=== PATIENT | female | born 1990 | race Two or more races ===

== ENCOUNTER 2024-09-22 03:07 | Emergency (ER) | payer MEDICAID, SELFPAY ==
[2024-09-22 03:11] VITALS: BP 143/88; PULSE 112; RESP 22; TEMP 36.4; O2SAT 96
[2024-09-22 03:13] VITALS: BMI 30.7
[2024-09-22] MEDS: DEXAMETHASONE SOD PHOS INJ 10 MG/ML VIAL PO (03:24)
[2024-09-22] MEDS: ALBUTEROL/IPRATROPIUM (Duoneb) RT SOL 3 ML NEBU 6 ML INH (03:32)
[2024-09-22 03:33] VITALS: PULSE 112; RESP 20; O2SAT 99
[2024-09-22] MEDS: BUDESONIDE RT 0.5 MG/2 ML NEBU INH (03:33)
--- NOTE | 2024-09-22 04:08 | PD.ASTHM ---
ED Asthma RME/HPI General Chief Complaint: Shortness of Breath/Dyspnea Stated Complaint: DIFF BREATHING Time Seen by Provider: 09/22/24 03:17 Arrival date/time: 09/22/24 03:07 34F with no known PMH including asthma (though patient uses an inhaler) presents to ED with 1 day of wheezing. Limitations: no limitations Related Data Previous Rx's ?Medication ?Instructions ?Recorded Hydrocodone/Acetaminophen * (NORCO 1 tab PO Q4H PRN pain #20 tabs 05/23/15 5/325 *) prednisone 20 mg tablet 20 mg PO QDAY 4 days #4 tabs 09/22/24 Allergies Allergy/AdvReac Type Severity Reaction Status Date / Time No Known Allergies Allergy Verified 09/22/24 03:12 Review of Systems Review of Systems Systems Reviewed: All systems reviewed, normal except as documented Constitutional Constitutional: Reports system reviewed and no additional complaints, except as documented, Denies fever(s) and Denies headache(s) ENT Ears, Nose, Mouth, and Throat: Denies disequilibrium and Denies headache(s) Cardiovascular Cardiovascular: Reports system reviewed and no additional complaints, except as documented, Denies chest pain and Denies dyspnea Respiratory Respiratory: Reports system reviewed and no additional complaints, except as documented, Reports as per HPI, Denies cough, Denies dyspnea and Reports wheezing Gastrointestinal Gastrointestinal: Reports system reviewed and no additional complaints, except as documented, Denies abdominal pain, Denies nausea and Denies vomiting Neurologic Neurologic: Reports system reviewed and no additional complaints, except as documented, Denies confusion, Denies disequilibrium and Denies headache(s) Psychiatric Psychiatric: Denies confusion Allergic/Immunologic Allergic/Immunologic: Reports wheezing Past Medical History Social History SMOKING STATUS: Never smoker ED Exam General Limitations: Present no limitations General appearance: Present alert and in no apparent distress Head Head exam: Present atraumatic Eye Eye exam: Present normal appearance, PERRL and EOMI ENT ENT exam: Present normal exam, normal oropharynx and mucous membranes moist Neck Neck exam: Present normal inspection, full ROM and trachea midline Chest Chest inspection: Present normal inspection and symmetric chest wall rise Respiratory Respiratory exam: Present wheezes Cardiovascular Cardiovascular exam: Present regular rate, normal rhythm and normal heart sounds Abdominal Exam Abdominal exam: Present soft and normal bowel sounds Extremities Exam Extremities exam: Present normal inspection and full ROM Back Exam Back exam: Present normal inspection and full ROM Neurological Exam Neurological exam: Present alert, oriented X3 and CN II-XII intact Psychiatric Psychiatric exam: Present normal affect and normal mood Skin Skin exam: Present warm, dry, intact and normal color Course Quality Measures none Orders Category Date Time Status Albuterol/Ipratr Rt Kathy [Duoneb Rt Kathy] Med 09/22/24 03:17 Discontinued 6 ml INH X1 ONE Budesonide Rt [Pulmicort Rt Kathy] Med 09/22/24 03:17 Discontinued 0.5 mg INH X1 ONE Dexamethasone Inj [Decadron Inj] Med 09/22/24 03:17 Discontinued 10 mg PO X1 ONE Vital Signs Vital signs: Vital Signs Temperature 97.6 F 09/22/24 03:11 Pulse Rate 112 H 09/22/24 03:11 Respiratory Rate 22 H 09/22/24 03:11 Blood Pressure 143/88 H 09/22/24 03:11 Pulse Oximetry (%) 96 09/22/24 03:11 Oxygen Delivery Method Room Air 09/22/24 03:11 Asthma MDM Narrative MDM Narrative:: 34F with no known PMH including asthma (though patient uses an inhaler) presents to ED with 1 day of wheezing. Physical exam reveals wheezing in lungs. Patient is afebrile, calm, and alert. Meds relieved symptoms. Given benefits counselor to get official diagnosis of asthma. Patient data External records reviewed:: [facility] previous records Clinical information provided by:: patient Social determinants that could affect healthcare access:: none Patient has the following chronic illnesses:: none How is presenting disease/condition affected by chronic disease/condition?: no chronic disease Evaluation data The following diagnostics were reviewed and interpreted by me:: other (specify) (none) Lab and/or radiology exams considered but not ordered:: not ordered Interpretation Summary: n/a Medications / Prescriptions Medications or Prescriptions considered but not ordered:: ordered Medication administrations:: Medication Administration History Discontinued Medications Albuterol/Ipratropium (Albuterol/Ipratropium (Duoneb) Rt Kathy 3 Ml Nebu) 6 ml INH X1 ONE Stop: 09/22/24 03:18 Last Admin: 09/22/24 03:32 Dose: 6 ml Documented By: CULLEN Budesonide (Budesonide Rt 0.5 Mg/2 Ml Nebu) 0.5 mg INH X1 ONE Stop: 09/22/24 03:18 Last Admin: 09/22/24 03:33 Dose: 0.5 mg Documented By: CULLEN Dexamethasone Sodium Phosphate (Dexamethasone Sod Phos Inj 10 Mg/Ml Vial) 10 mg PO X1 ONE Stop: 09/22/24 03:18 Last Admin: 09/22/24 03:24 Dose: 10 mg Documented By: TORIN Consultations Consultation(s) initiated? (list below): No Diagnosis Differential diagnosis asthma: Acute exacerbation, Status asthmaticus, Acute asthmatic bronchitis, PE, Pneumonia, COPD exacerbation, Pulmonary edema systolic, Pulmonary edema dystolic, ARDS, Pneumothorax, Foreign body in trachea and other (RAD) Most likely diagnosis given after review of the tests above:: RAD Admission Indicated Admission indicated?: not indicated Admission Request Was there a request for admission?: No Disposition Plan Disposition Plan: Discharge Discharge Attestation Discharge Attestation: The patient and all family members were given an opportunity to ask questions and understood the discharge instructions. Discharge instructions specifically effects, indications for sooner follow up or return to the emergency department, and the expected course of current diagnosis. Patient condition: Stable Discharge Plan Plan Patient Disposition: HOME (Self Care) Disposition Comment: Stable Prescriptions/Referrals Prescriptions/Med Rec: New prednisone 20 mg tablet 20 mg PO QDAY 4 Days Qty: 4 0RF No Action Hydrocodone/Acetaminophen * (NORCO 5/325 *) 1 TAB tablet 1 tab PO Q4H PRN (Reason: pain) Qty: 20 0RF Referrals: No Primary/Family,Physician [Primary Care Provider] - In 1 week Problem List Clinical Impression: RAD (reactive airway disease) with wheezing Patient/Caregiver Discharge Instructions Additional Instructions: Please follow-up with PCP within 24-48 hours and return immediately if symptoms worsen. See PCP for official diagnosis of asthma or other lung pathology/ Print Language: Maltese Stand Alone Forms: Patient Portal Info Letter PA/[employer] Supervising Physician SRIDHAR/[employer] Supervising Physician: Dr. Jeffers
[2024-09-22 05:00] VITALS: BP 128/84; PULSE 93; RESP 19; TEMP 36.8; O2SAT 96
== END 2024-09-22 05:01 | disposition home or self-care (01) ==
PROVIDERS: Emergency Provider Emergency Medicine
DX: J45.909 Unspecified asthma, uncomplicated (principal)
CPT/HCPCS: 94640; 99283; A9270; J1100